=== PATIENT | female | born 1985 | race Caucasian/White ===

== ENCOUNTER 2016-07-20 19:25 | Inpatient (IN) | payer OTHER ==
[2016-07-20] MEDS ORDERED: TERBUTALINE SULFATE 1 MG/ML VIAL IV PRN (19:47)
[2016-07-20] MEDS ORDERED: OLIVE OIL 118 ML BTL MISC PRN (19:47)
[2016-07-20] MEDS ORDERED: OXYTOCIN/RINGERS LACTATE 1,000 ML IV PRN (19:47)
[2016-07-20] MEDS ORDERED: EPSOM SALT 454 GM TP PRN (19:47)
[2016-07-20] MEDS ORDERED: LIDOCAINE 1% 30 ML SDV SC PRN (19:47)
[2016-07-20] MEDS ORDERED: LR 1,000 ML IV PRN (19:47)
[2016-07-20] MEDS ORDERED: AMPICILLIN SODIUM 2 GM in NS 100 ML IV ONE (19:47)
[2016-07-20] MEDS ORDERED: OLIVE OIL 118 ML BTL ONE (19:56)
[2016-07-20] MEDS ORDERED: LIDOCAINE 1% 30 ML SDV ONE (19:56)
[2016-07-20] MEDS ORDERED: AMMONIA AROMATIC 1 EACH AMP IH ONE (19:56)
[2016-07-20] MEDS ORDERED: TERBUTALINE SULFATE 1 MG/ML VIAL ONE (19:57)
[2016-07-20] MEDS ORDERED: MISOPROSTOL 200 MCG TAB ONE (19:57)
[2016-07-20] MEDS ORDERED: OXYTOCIN 10 UNIT/ML VIAL ONE (19:57)
[2016-07-20 19:59] LABS: % IMMATURE GRANULYOCYTES 0.2 % (0.0-1.1); ABSOLUTE IMMATURE GRANULOCYTES 0.02 10^3/uL (0.00-0.10); ADD DIFF? NO; ADD MORPH? NO; ADD SCAN? NO; ATYPICAL LYMPHOCYTE FLAG 40 (0-99); FRAGMENT RBC FLAG 0 (0-99); HEMATOCRIT 32.2 % (38.0-47.0); LEFT SHIFT FLG 0 (0-99); LIPEMIA HEMOLYSIS FLAG 90 (0-99); MEAN CELL HEMOGLOBIN 30.1 pg (27.9-34.1); MEAN CELL HEMOGLOBIN CONCENTR. 34.2 g/dL (32.4-36.7); MEAN CELL VOLUME 88.2 fL (81.5-99.8); PLATELET CLUMPS FLAG 20 (0-99); PLATELET COUNT 220 10^3/uL (150-400); RED BLOOD CELL COUNT 3.65 10^6/uL (4.18-5.33); RED CELL DISTRIBUTION WIDTH 12.6 % (11.5-15.2)
[2016-07-20] MEDS ORDERED: PHENYLEPHRINE HCL 100 MCG/ML SYR ONE (20:14)
[2016-07-20] MEDS ORDERED: fentaNYL 100 MCG/2 ML INJ ONE (20:14)
[2016-07-20] MEDS ORDERED: BUPIVACAINE 0.25% 30 ML SDV ONE (20:15)
[2016-07-20] MEDS ORDERED: fentaNYL 2MCG/ML/BUP 0.1% RTU 100 ML BAG EP ONE (20:15)
--- NOTE | 2016-07-20 20:57 | GHP ---
[f rep st] HISTORY AND PHYSICAL DATE OF ADMISSION: 07/20/2016 CHIEF COMPLAINT: Contractions. HISTORY OF PRESENT ILLNESS: The patient is a 31-year-old, G2, P1, 0-0-1, at 37 weeks, 0 days' gestation, with an estimated due date of 08/09/2016, dated by last menstrual period and 8 week ultrasound, who presents with contractions since 2 p.m. She states initially the contractions were not strong or close together. However about 90 minutes prior to admission, the contractions became stronger and more regular, so she presented for evaluation. She denies leakage of fluid or vaginal bleeding. Her has been complicated by GBS positive status, history of depression , concurrently on Prozac, and history of hemochromatosis. PAST MEDICAL HISTORY: Includes depression, hemochromatosis and history of drug and alcohol abuse. PAST SURGICAL HISTORY: Includes ORIF of right ankle, knee arthroscopy and bilateral thumb surgery. 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 She has received flu and Tdap vaccines this . She has gained 26 pounds. She has had negative sequential screen and anatomy ultrasound. Her OB labs are significant for blood type O positive with a negative antibody screen, negative Pap smear. She is immune to rubella, nonreactive to RPR, hep B surface antigen and HIV. She had a negative urine culture. She had negative gonorrhea and chlamydia tests. Her 1 hour Glucola was normal at 76. OBJECTIVE: VITAL SIGNS: BP 112/72, HR 100, Respirations 20, Temp 37.0, pain 8/ 10. GENERAL: Alert, awake, in moderate discomfort with contractions. LUNG: Respirations unlabored. CARDIOVASCULAR: Regular rate and rhythm. ABDOMEN: Gravid, consistent with term gestation. EXTREMITIES: Nontender. No edema. STERILE VAGINAL EXAM: 6 cm dilation, 90% effaced and -2 station. Vertex presentation. Intact heart rate with a baseline of 130 beats per minute. Positive accelerations. No decelerations and moderate variability. On toco, she has contractions every 2-3 minutes. LABORATORIES: Notable for a white blood cell count of 9.3, hemoglobin of 11.0, hematocrit of 32.2 and platelets of 220. ASSESSMENT AND PLAN: Patient is a healthy 31-year-old, G2, P1, 0-0-1, with an uncomplicated term gestation, who presents in labor. Reassuring status. GBS positive. - First dose of IV ampicillin 2 g given. - Plan to proceed with epidural now at patient's request - Expectant management with plan for spontaneous vaginal delivery. - Will alert peds of prozac use, discussed risks of withdrawal symptoms /[id number]/MODL MTDD
[2016-07-20] MEDS ORDERED: ONDANSETRON 4 MG/2 ML VIAL IVP PRN (21:20)
[2016-07-20] MEDS ORDERED: PHENYLEPHRINE HCL 100 MCG/ML SYR IVP PRN (21:20)
[2016-07-20] MEDS ORDERED: NALOXONE HCL 0.4 MG/ML INJ IVP PRN (21:20)
--- NOTE | 2016-07-20 21:23 | PREANESOB ---
Obstetric Pre-Anesthesia Info - General Info Proposed Procedure: SIVAKUMAR : 2 Para: 1 - Info Status: Full Term Monitors: External FHR Pattern: Reassuring - Labor Status PIH: No Magnesium Sulfate in Use: No Indications for Labor Analgesia: Pain Control Labor Epidural: Yes Anesthesia Allergies/Adverse Reactions: Allergy/AdvReac Type Severity Reaction Status Date / Time benzoin Allergy Mild Itching Verified 10/15/14 10:41 procaine HCl [From Novocain] Allergy Mild Vomiting Verified 10/15/14 10:41 Home Medications: Medication Instructions Recorded Vit27&Calcium/Iron/FA 1 each PO DAILY 07/16/14 [] Sertraline HCl [Zoloft 25mg (*)] 25 mg PO DAILY 07/16/14 Visit Medications: Generic Name Dose Route Start Last Admin Trade Name Freq PRN Reason Stop Dose Admin Ampicillin Sodium 1 gm/ Sodium 100 mls @ 200 mls/hr 07/20/16 23:48 Chloride IV 08/19/16 23:47 Q4H FADIA Protocol Lactated Ringer's 1,000 mls @ 0 mls/hr 07/20/16 19:47 Lr IV 01/16/17 19:46 PRN PRN SEE PROTOCOL CONDITIONS Protocol Per Protocol Oxytocin/Lactated Ringer's 1,000 mls @ 150 mls/hr 07/20/16 19:47 Pitocin 20 Units/Lr (Premix) IV PRN PRN Post- bleeding Ibuprofen 600 mg 07/20/16 19:47 Motrin PO 01/16/17 19:46 Q6HRS PRN post , inflammation Lidocaine HCl 30 ml 07/20/16 19:47 Lidocaine Hcl 1% SC 01/16/17 19:46 ONCE PRN Episiotomy Magnesium Sulfate 454 gm 07/20/16 19:47 Epsom Salt TP 01/16/17 19:46 PRN PRN perineal discomfort Cunningham Oil 118 ml 07/20/16 19:47 Sweet Oil MISC 01/16/17 19:46 ONCE PRN preneal massage Terbutaline Sulfate 0.25 mg 07/20/16 19:47 Brethine IV 01/16/17 19:46 ONCE PRN Tachysystole Discontinued Medications Generic Name Dose Route Start Last Admin Trade Name Freq PRN Reason Stop Dose Admin Ammonia (Aromatic Spirit) Confirm 07/20/16 19:56 Ammonia Aromatic Administered 07/20/16 19:57 Dose 1 each IH .STK-MED ONE Bupivacaine HCl Confirm 07/20/16 20:15 Sensorcaine 0.25% Sdv Administered 07/20/16 20:16 Dose 30 ml .ROUTE .STK-MED ONE Ephedrine Sulfate Confirm 07/20/16 19:56 Ephedrine Sulfate Administered 07/20/16 19:57 Dose 50 mg .ROUTE .STK-MED ONE Fentanyl Confirm 07/20/16 20:14 Sublimaze Administered 07/20/16 20:15 Dose 100 mcg .ROUTE .STK-MED ONE Fentanyl/Bupivacaine HCl Confirm 07/20/16 20:15 Fentanyl/Bupivacaine/Ns 2 Mcg/Ml 0.1% (Premix Administered 07/20/16 20:16 Dose 100 ml EP .STK-MED ONE Ampicillin Sodium 2 gm/ Sodium 110 mls @ 220 mls/hr 07/20/16 19:47 07/20/16 20:01 Chloride IV 07/20/16 20:16 110 mls ONCE ONE Administration Protocol Lidocaine HCl Confirm 07/20/16 19:56 Lidocaine Hcl 1% Administered 07/20/16 19:57 Dose 30 ml .ROUTE .STK-MED ONE Misoprostol Confirm 07/20/16 19:57 Cytotec Administered 07/20/16 19:58 Dose 800 mcg .ROUTE .STK-MED ONE Cunningham Oil Confirm 07/20/16 19:56 Sweet Oil Administered 07/20/16 19:57 Dose 118 ml .ROUTE .STK-MED ONE Oxytocin Confirm 07/20/16 19:57 Pitocin Administered 07/20/16 19:58 Dose 40 unit .ROUTE .STK-MED ONE Phenylephrine HCl Confirm 07/20/16 20:14 Redd-Synephrine Administered 07/20/16 20:15 Dose 1,000 mcg .ROUTE .STK-MED ONE Terbutaline Sulfate Confirm 07/20/16 19:57 Brethine Administered 07/20/16 19:58 Dose 1 mg .ROUTE .STK-MED ONE - Focused Exam Height/Weight (Nursing): Height 162.56 cm Weight 66.224 kg Labs: 07/20/16 19:48 Patient ABO/Rh O POSITIVE 07/20/16 19:48
[2016-07-20] MEDS ORDERED: LR 500 ML IV SCH (21:30)
[2016-07-20] MEDS ORDERED: fentaNYL 2MCG/ML/BUP 0.1% RTU 100 ML EP SCH (21:30)
[2016-07-20] MEDS ORDERED: METHYLERGONOVINE MAL 0.2 MG/ML INJ ONE (23:25)
[2016-07-20 23:38] LABS: CORD BLOOD PCO2 63.7 mmHg (37-60); PH ARTERIAL CORD BLOOD 7.17 (7.10-7.37)
[2016-07-20 23:39] LABS: PH VENOUS CORD BLOOD 7.36 (7.20-7.42)
[2016-07-20] MEDS ORDERED: HEMABATE 250 MCG/1 ML AMP IM ONE (23:40)
[2016-07-20] MEDS ORDERED: AMPICILLIN SODIUM 1 GM in NS 100 ML IV SCH (23:48)
[2016-07-20] MEDS ORDERED: CEFAZOLIN 2 GM/DEXTROSE/100 ML BAG IV ONE (23:58)
[2016-07-21] MEDS ORDERED: ACETAMINOPHEN 325 MG TAB PO PRN (00:22)
[2016-07-21] MEDS ORDERED: DOCUSATE SODIUM 100 MG CAP PO PRN (00:22)
[2016-07-21] MEDS ORDERED: SIMETHICONE 80 MG TAB CHEW PO PRN (00:22)
[2016-07-21] MEDS ORDERED: HYDROCODONE/APAP 5/325 TAB PO PRN (00:22)
[2016-07-21] MEDS ORDERED: HYDROCORTISONE 0.5% CREAM TP PRN (00:22)
--- NOTE | 2016-07-21 00:38 | OBPROC ---
- Labor and Delivery Onset of Contractions Date: 07/20/16 Onset of Contractions Time: 14:00 Onset of Contractions Type: Spontaneous Rupture of Membranes Date: 07/20/16 Rupture of Membranes Time: 22:49 Rupture of Membranes Type: Spontaneous Amniotic Fluid Color: Meconium Stained-Heavy Dilation Complete Time: 22:48 Delivery Type: Spontaneous Placenta Delivery Date: 07/20/16 Placenta Delivery Time: 22:18 EBL: 700 Complications: Nuchal Cord, Post Hemorrhage, Uterine Atony Cord Gases: Cord Gases Cord Blood PCO2 63.7 mmHg (37-60) H 07/20/16 23:30 Cord Base Excess -7.0 mEq/L (-13.6--3.2) 07/20/16 23:30 Cord ABG pH 7.17 (7.10-7.37) 07/20/16 23:30 Cord VBG pH 7.36 (7.20-7.42) 07/20/16 23:30 - Medications Labor Augmentation/Induction Meds Used: None Anesthesia: Epidural - Info A Delivery Date: 07/20/16 Delivery Time: 22:13 Sex of Infant: Male Score (1 Min): 7 Score (5 Min): 7 (Mom progressed to complete and had SROM with thick mec. Baby in ROP presentation. FHR with mod yovana and reassuring with decelerations to 90s with contractions, resolving after. She felt urge to push. Thao removed just prior to pushing. Pushed over the course of 5 contractions, and baby turned spontaneously to JUAN C at time of delivery. Loose nuchal x 1 reduced. Anterior shoulder delivered easily, followed by posterior shoulder and remainder of body. Baby placed onto maternal abdomen and rescusitated by EDUCATION TRAINER. Cord cut and clamped at 2 min. 20 units IV pitocin started. Segment for gasses collected. Baby to warmer for suctioning. Cord blood collected. Placenta delivered spontaneously with fundal massage and gentle cord traction. Hemostatic left periuretheral lac noted. No perineal laceration. After delivery of placenta uterus noted to be boggy. Bimanual massage performed, noted to have small pieces of adherent membranes in CINTHIA. Called for US and krystle narayanan for concern for retained tissue. Bedside US showed thin uterus stripe at fundus. Krystle curettage performed in CINTHIA under direct US guidance, small pieces of placenta/membrane removed. Uterus continued to be boggy after all tissue removed , and 0.2 mg IM methergine given. Additional curettage performed under US guidance, no further tissue obtained. EBL at this time 500 ml, and as bleeding was ongoing 2nd IV was placed and ordered 2 units pRBCs on hold. Cytotec 600 mg given sublingually and ongoing fundal massage was performed. Pt remained awake with stable vitals and excellent pain control with epidural. Speculum was called for and full exam was performed, confirming no cervical laceration or sulcal laceration. IM hemabate given for ongoing bleeding and bogginess in CINTHIA. Called for Bakri balloon to be in room. After hemabate injection and with further massage the uterus firmed and bleeding stopped. Pt remained awake with stable vitals. Thao catheter placed. Baby to nursery for further evaluation for meconium. Mom in stable condition. Ancef 2g IV given.)
[2016-07-21 02:19] LABS: % IMMATURE GRANULYOCYTES 0.6 % (0.0-1.1); ADD DIFF? NO; ADD MORPH? NO; ADD SCAN? NO; ATYPICAL LYMPHOCYTE FLAG 20 (0-99); FRAGMENT RBC FLAG 0 (0-99); HEMOGLOBIN 11.1 g/dL (12.6-16.3); LEFT SHIFT FLG 0 (0-99); LIPEMIA HEMOLYSIS FLAG 80 (0-99); MEAN CELL HEMOGLOBIN 30.2 pg (27.9-34.1); MEAN CELL HEMOGLOBIN CONCENTR. 33.6 g/dL (32.4-36.7); MEAN CELL VOLUME 89.9 fL (81.5-99.8); MEAN PLATELET VOLUME 10.2 fL (8.7-11.7); PLATELET CLUMPS FLAG 20 (0-99); PLATELET COUNT 190 10^3/uL (150-400); RED BLOOD CELL COUNT 3.67 10^6/uL (4.18-5.33); RED CELL DISTRIBUTION WIDTH 12.6 % (11.5-15.2)
[2016-07-21] MEDS: IBUPROFEN 600 MG TAB PO PRN ×3 (06:11→18:15)
--- NOTE | 2016-07-21 07:47 | SOAPPROG ---
SOAP Progress Note Assessment/Plan: Assessment: POD#1 s/p c/b PPH due to retained POC and atony. s/p banjo curettage, pitocin, methergine, miso, hemabate. No further bleeding. Total EBL 700 ml Hct stable, no change from admission VSS. Excellent UOP Plan: Routine pp care ambulate with assistance D/C muñoz regular diet Motrin and norco perineal care 07/21/16 07:45 Subjective: Feeling very tired, denies dizziness or lightheadedness. Hasn't tried to ambulate. Muñoz cath in place. Baby not yet interested in . 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
--- NOTE | 2016-07-21 09:30 | POSTANESTH ---
Post Anesthetic Evaluation Cardiovascular Status: Normal, Stable Respiratory Status: Normal, Stable Level of Consciousness/Mental Status: Can Participate in Eval Pain Control: Adequate, Prn Tx Ordered Nausea/Vomiting Control: Adequate, Prn Tx Ordered Complications Possibly Related to Anesthesia: None Noted
[2016-07-21 09:49] VITALS: RESP 16
[2016-07-22] MEDS: IBUPROFEN 600 MG TAB PO PRN ×2 (05:15→11:23)
[2016-07-22 06:35] VITALS: BP 98/63; PULSE 56; TEMP 97; O2SAT 97
--- NOTE | 2016-07-22 10:08 | OBGCSDC ---
General Delivery Information - General Info : 2 Para: 2 Abortions: 0 Delivery Date: 07/20/16 Delivery Physician/CNM: Eveline Harry Admission Date: 07/20/16 Labs: Patient ABO/Rh O POSITIVE 07/20/16 19:48 Hct 31.2 % (38.0-47.0) L 07/22/16 06:00 - Info A Sex of : Male Score (1 Min): 7 Score (5 Min): 7 (Mom progressed to complete and had SROM with thick mec. Baby in ROP presentation. FHR with mod yovana and reassuring with decelerations to 90s with contractions, resolving after. She felt urge to push. Thao removed just prior to pushing. Pushed over the course of 5 contractions, and baby turned spontaneously to JUAN C at time of delivery. Loose nuchal x 1 reduced. Anterior shoulder delivered easily, followed by posterior shoulder and remainder of body. Baby placed onto maternal abdomen and rescusitated by TRAUMA DOCTOR. Cord cut and clamped at 2 min. 20 units IV pitocin started. Segment for gasses collected. Baby to warmer for suctioning. Cord blood collected. Placenta delivered spontaneously with fundal massage and gentle cord traction. Hemostatic left periuretheral lac noted. No perineal laceration. After delivery of placenta uterus noted to be boggy. Bimanual massage performed, noted to have small pieces of adherent membranes in CINTHIA. Called for US and krystle narayanan for concern for retained tissue. Bedside US showed thin uterus stripe at fundus. Krystle curettage performed in CINTHIA under direct US guidance, small pieces of placenta/membrane removed. Uterus continued to be boggy after all tissue removed , and 0.2 mg IM methergine given. Additional curettage performed under US guidance, no further tissue obtained. EBL at this time 500 ml, and as bleeding was ongoing 2nd IV was placed and ordered 2 units pRBCs on hold. Cytotec 600 mg given sublingually and ongoing fundal massage was performed. Pt remained awake with stable vitals and excellent pain control with epidural. Speculum was called for and full exam was performed, confirming no cervical laceration or sulcal laceration. IM hemabate given for ongoing bleeding and bogginess in CINTHIA. Called for Bakri balloon to be in room. After hemabate injection and with further massage the uterus firmed and bleeding stopped. Pt remained awake with stable vitals. Thao catheter placed. Baby to nursery for further evaluation for meconium. Mom in stable condition. Ancef 2g IV given.) Vaginal - Diagnosis IUP (Weeks): 37 Labor: Spontaneous Rupture of Membranes Type: Spontaneous Amniotic Fluid Color: Meconium Stained-Heavy Complications: Nuchal Cord, Post Hemorrhage, Uterine Atony - Operations/Procedures Delivery Type: Spontaneous Anesthesia: Epidural Medications: Prostaglandins, Pitocin, Other (Specify) (methergine) - Hospital Course Antepartum: spontaneous labor at 37 weeks Intrapartum: SROM with thick mec. PPH due to retained POC/atony. s/p banjo curette, methergine, pitocin, hemabate, cytotec. EBL 700 ml. : Routine pp care. Hct and VS stable - Delivery EBL: 700 Anesthesia: Epidural Discharge Information - Discharge Information Discharge Medications: Other (Specify) (colace) Complications: none Condition: Good Instruction/Follow Up: Six Weeks Discharge Physician/CNM: Eveline Harry Discharge Date: 07/22/16 Dictated: No
== END 2016-07-22 11:56 | disposition home or self-care (01) | DRG 767 ==
LOC: OBSVTOIN 19:25 → FLD 19:25 → FOB 07-21 10:46
PROVIDERS: ADMIT Obstetrics & Gynecology; ATTEND Obstetrics & Gynecology
DX: O72.1 Other immediate postpartum hemorrhage (principal); O69.89X0 Labor and delivery complicated by other cord complications, not applicable or unspecified; O77.0 Labor and delivery complicated by meconium in amniotic fluid; O99.820 Streptococcus B carrier state complicating pregnancy; O99.343 Other mental disorders complicating pregnancy, third trimester; F32.9 Major depressive disorder, single episode, unspecified; Z37.0 Single live birth; Z3A.37 37 weeks gestation of pregnancy
CPT/HCPCS: J0290; J0690; J1200; J2210; J2370; J2405; J2590; J3010; J3105